=== PATIENT | female | born 1990 | race Caucasian/White ===

== ENCOUNTER → 2024-07-07 10:05 | Outpatient (CLI) | payer BC, SELFPAY ==
[2024-07-07 11:44] LABS: Add Manual Diff / Slide Review NO; Basophils Absolute Auto 0 /uL (0-100); Basophils Percent Auto 0.4 % (0-2); Eosinophils Absolute Auto 100 /uL (0-450); Eosinophils Percent Auto 0.6 % (2-4); Hematocrit 37.3 % (36-46); Hemoglobin 12.6 g/dL (12.0-16.0); Lymphocytes Absolute Auto 1600 /uL (1100-4500); Lymphocytes Percent Auto 15.9 % (25-40); Mean Corpuscular HGB Conc 33.8 % (30-36); Mean Corpuscular Hemoglobin 30.7 PG (26-34); Mean Corpuscular Volume 90.8 fL (80-100); Monocytes Absolute Auto 400 /uL (0-900); Monocytes Percent Auto 3.6 % (3-14); Neutrophils Absolute Auto 8000 /uL (1500-7000); Neutrophils Percent Auto 79.5 % (50-75); Platelet Count 308 X10^3/uL (150-400); Red Blood Cell Count 4.11 X10^6/uL (4.0-5.2); Red Cell Distribution Width 13.8 % (11.6-14.8)
[2024-07-07 11:59] LABS: Natera Collection Specimen Collected
[2024-07-07 13:15] LABS: Hepatitis B Surface Antigen NEGATIVE s/c (NEGATIVE); Rubella Antibody IgG 64.1 IU/mL (>15)
[2024-07-07 13:31] LABS: HIV 1 & 2 Ab/Ag 4th Gen Combo NEGATIVE (NEGATIVE); Hep C Virus Ab w/Reflex Quant NEGATIVE s/c (NEGATIVE)
[2024-07-08 04:14] LABS: RPR Screen Non Reactive (Non Reactive)
[2024-07-08 09:09] LABS: Varicella IgG Antibody Non Reactive (Non Reactive)
== END ==
PROVIDERS: Obstetrics & Gynecology; Referring Provider Student in an Organized Health Care Education/Training Program; Visit Provider Student in an Organized Health Care Education/Training Program
DX: O09.521 Supervision of elderly multigravida, first trimester (principal)
CPT/HCPCS: 36415; 80055; 86787; 86803; 86850; 86900; 86901; 87389

== ENCOUNTER → 2024-08-04 08:37 | Outpatient (CLI) | payer BC, SELFPAY ==
[2024-08-07 20:36] LABS: AFP Value 94.5 ng/mL (.); Gest Age on Col Date 15.6 weeks (.); Insulin Dep Diabetes No (.); OSBR Risk 1IN 188 (.); Results Report (.); Test Results *Screen Positive* (.)
== END ==
PROVIDERS: Obstetrics & Gynecology; Referring Provider Obstetrics & Gynecology; Visit Provider Obstetrics & Gynecology
DX: Z36.0 Encounter for antenatal screening for chromosomal anomalies (principal); Z34.02 Encounter for supervision of normal first pregnancy, second trimester
CPT/HCPCS: 36415; 82105

== ENCOUNTER → 2024-08-12 06:59 | Outpatient (CLI) | payer BC, SELFPAY ==
[2024-08-14 20:10] LABS: AFP Value 89.9 ng/mL (.); Gest Age on Col Date 16.7 weeks (.); Insulin Dep Diabetes No (.); OSBR Risk 1IN 472 (.); Results Report (.); Test Results *Screen Negative* (.)
== END ==
PROVIDERS: Referring Provider Obstetrics & Gynecology; Visit Provider Obstetrics & Gynecology
DX: Z34.92 Encounter for supervision of normal pregnancy, unspecified, second trimester (principal); R77.2 Abnormality of alphafetoprotein
CPT/HCPCS: 36415; 82105

== ENCOUNTER → 2024-10-17 08:28 | Outpatient (CLI) | payer BC, SELFPAY ==
[2024-10-17 10:36] LABS: Hematocrit 34.1 % (36-46); Hemoglobin 11.6 g/dL (12.0-16.0)
[2024-10-17 11:47] LABS: GTT (PREG) 1 Hour PP 50gm Dose 113 mg/dL (76-139)
== END ==
PROVIDERS: Referring Provider Obstetrics & Gynecology; Visit Provider Obstetrics & Gynecology
DX: Z34.02 Encounter for supervision of normal first pregnancy, second trimester (principal); Z3A.26 26 weeks gestation of pregnancy
CPT/HCPCS: 36415; 82950; 85014; 85018

== ENCOUNTER 2024-12-30 07:23 | Inpatient (IN) | payer BC, SELFPAY ==
--- NOTE | 2024-12-30 09:12 | PM.OBHP.IH.1 ---
OB HPI Date/Time Date of admission: 12/30/24 Date Patient Seen: 12/30/24 Time Patient Seen: 08:00 History of Present Condition Chief complaint: PPROM at 36w5d WARNER Calculator Estimated Delivery Date Method Current WG Current Estimate 01/22/25 LMP (Certain) 36w 5d Other Estimates 01/25/25 Ultrasound #1 36w 2d care: good care Dating criteria OB: LMP confirmed by 1st trimester US Ultrasounds: normal 1st trimester US and normal mid trimester US Obstetrical complications: none Medical complications OB: none Preadmission Labs Last OB Lab Results: Blood Type A Positive 12/30/24 08:15 Antibody Screen Negative 12/30/24 08:15 Hct 36.6 % (36-46) 12/30/24 08:15 Hgb 12.3 g/dL (12.0-16.0) 12/30/24 08:15 Hep Bs Antigen Negative s/c (NEGATIVE) 07/07/24 10:59 Hepatitis C Antibody Negative s/c (NEGATIVE) 07/07/24 10:59 Rubella Antibody 64.1 IU/mL (>15) 07/07/24 10:59 VZV IgG Antibody Non reactive (Non Reactive) 07/07/24 10:59 Glucose 1 Hr 50 gm 113 mg/dL (76-139) 10/17/24 10:54 Group B Strep (PCR) Pos for grp b strep H 12/30/24 08:00 -: Chlamydia screen: negative, Gonorrhea screen: negative and Urine: negative -: PAP smear: Normal Genetic Screens: Cell-free DNA: Normal and Alpha-fetoprotein: Normal External Labs -: Urine: negative Evaluation Evaluation Baseline heart rate: 140 Variability: Moderate (11-25) monitor accelerations: Present Monitor Decelerations: Absent Contraction Frequency (minutes): 8 Uterine Contraction Intensity: Moderate Category of Tracing: Reactive Status: Category l Dilation (cm): 1 Effacement (%): 30 Dilation: 1-2 cm Effacement: 0-30% station: -3 Position of cervix: posterior Consistency: soft Simon score: 3 Non-invasive Membranes Rupture Test: positive [facility] Medical History (Updated 08/04/24 @ 08:18 by Jerrell Wheatley MD) Labial cyst Surgical History (Updated 05/27/24 @ 13:35 by Tory Sorenson RN) [place] teeth removed Family History (Updated 05/27/24 @ 13:36 by Tory Sorenson RN) Mother Hypertension Grandfather Lung cancer Smoker Social History marital status: details: : Ernst Mike number of children: 0 household members: spouse lives independently: Yes caregiver/support person: No housing: house pets and animals: Yes (3 dogs, 1 cat, 8 chickens, 1 duck; aware of precautions ) education level: college (bachelors in communication ) 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 Discussed every day and pet precautions) special abril needs: No travel history: other (denies ) seatbelt use: always helmet use: Yes (scooters) water heater temp set < 120 deg: Yes working smoke detector in home: Yes fire extinguisher in home: Yes carbon monox detector in home: Yes firearms in home: Yes firearms unloaded and locked: Yes do you feel safe at home: Yes Smoking Status: Never smoker second hand exposure: No alcohol intake: former (socially before ) substance use type: marijuana (Occasional, not since ) during the past year weight has: remained stable well-balanced diet: daily or most days daily servings fruits/ve or more times/day caffeine: Yes (1 cup of coffee every day ) Type(s) of exercise: walking and additional (Gardening ) frequency: 5-6 times per week Meds Home Medications and Allergies Home Medications Medication Instructions Recorded Confirmed Type Magnesium Citrate 250mg PO 05/27/24 12/16/24 History vits no.126-ferrous fum tab PO 05/27/24 12/16/24 History 28 mg iron-folic acid 800 mcg tablet (Classic ) breast pump #1 ea 10/09/24 12/16/24 Rx Allergies Allergy/AdvReac Type Severity Reaction Status Date / Time No Known Drug Allergies Allergy Unverified 12/16/24 07:54 Review of Systems Review of Systems ROS: Yes All systems reviewed with the patient and are negative except as otherwise documented OB Exam Vital signs Blood Pressure: 112/71 Pulse Rate: 65 Respiratory Rate: 18 Temperature: 97.9 F HENMT Head: normal to inspection Cardio Rate: regular rate GI Inspection: normal to inspection Palpation: Yes soft Other: gravid, jose cephalic External Female Exam: Yes normal external appearance Objective Labs 12/30/24 08:15 Assessment and Plan Assessment and Plan Assessment and Plan narrative: 34yo G1 at 36w5d d=11wk US presents with PPROM at 0400, early latent late- labor PPROM, early latent late- labor +amnisure, GBS collected on arrival start ampicillin with +GBS culture/active labor pt amenable to IV pitocin in nondenominational contractions space, currently irregular but becoming stronger Cat 1 tracing, maternal VSS/afebrile peds aware Patient is consented for vaginal, vaginal operative and delivery as well as transfusion of blood products as medically indicated. admit for expectant management, anticipate vaginal delivery Time-Based Coding :: [TOTAL MINUTES] spent with patient and on the chart (including review of chart, obtaining history, exam, reviewing outside data, placing orders, documenting exam and treatment plan, and counseling patient) on [DATE].
[2024-12-30 09:16] LABS: Strep Grp B PCR POS for Grp B Strep
[2024-12-30 09:26] LABS: Add Manual Diff / Slide Review NO; Basophils Absolute Auto 100 /uL (0-100); Basophils Percent Auto 0.5 % (0-2); Eosinophils Absolute Auto 0 /uL (0-450); Eosinophils Percent Auto 0.4 % (2-4); Hematocrit 36.6 % (36-46); Hemoglobin 12.3 g/dL (12.0-16.0); Lymphocytes Absolute Auto 2100 /uL (1100-4500); Lymphocytes Percent Auto 17.9 % (25-40); Mean Corpuscular HGB Conc 33.6 % (30-36); Mean Corpuscular Hemoglobin 31.4 PG (26-34); Mean Corpuscular Volume 93.6 fL (80-100); Monocytes Absolute Auto 500 /uL (0-900); Monocytes Percent Auto 4.4 % (3-14); Neutrophils Absolute Auto 8900 /uL (1500-7000); Neutrophils Percent Auto 76.8 % (50-75); Platelet Count 227 X10^3/uL (150-400); Red Blood Cell Count 3.91 X10^6/uL (4.0-5.2); Red Cell Distribution Width 13.9 % (11.6-14.8); White Blood Cell Count 11.6 X10^3/uL (4.5-11.0)
[2024-12-30 09:36] VITALS: BP 115/71
[2024-12-30] MEDS: LACTATED RINGERS 1,000 ML 100 ML IV ×2 (11:55→23:10)
[2024-12-30] MEDS: AMPICILLIN 2,000 MG in SODIUM CHLORIDE 0.9% 100 ML 200 MG IV (11:56)
[2024-12-30] MEDS: OXYTOCIN PREMIX 30 UNIT/500 ML PLAST..BAG IV (13:31)
--- NOTE | 2024-12-30 15:15 | PM.AN.REGBLK ---
Regional Block Pre-procedure PMH/ROS narrative: active labor ASA Class: II Labs: Hct 36.6 % (36-46) 12/30/24 08:15 Plt Count 227 X10^3/uL (150-400) 12/30/24 08:15 Medications: Current Medications Generic Name Dose Route Start Last Admin Trade Name Freq PRN Reason Stop Dose Admin Carboprost Tromethamine 250 mcg 12/30/24 09:09 Carboprost 250 Mcg/Ml Ampul IM Q90M PRN Bleeding Diphenhydramine HCl 25 mg 12/30/24 15:12 Diphenhydramine 50 Mg/Ml Vial IV Q10M PRN Pruritis Lactated Ringer's 1,000 mls @ 100 mls/hr 12/30/24 09:15 12/30/24 11:55 Lactated Ringers IV 12/30/24 19:14 100 mls/hr CONT JEOVANNY Administration Oxytocin/Lactated Ringer's 30 unit in 500 mls @ 200 mls/hr 12/30/24 09:09 Oxytocin Premix IV CONT PRN Bleeding Protocol Tranexamic Acid 1,000 mg/ 100 mls @ 600 mls/hr 12/30/24 09:09 Sodium Chloride IV NOW PRN Bleeding Ampicillin Sodium 1,000 mg/ 100 mls @ 200 mls/hr 12/30/24 13:00 Sodium Chloride IV Q4H JEOVANNY Oxytocin/Lactated Ringer's 30 unit in 500 mls @ 2 mls/hr 12/30/24 09:15 12/30/24 13:31 Oxytocin Premix IV 2 milliunit/min TITRATE JEOVANNY 2 mls/hr Administration Protocol 2 MILLIUNIT/MIN FENT 2MCG/ML BUPIV 0.125% EPI 200 mcg in 100 mls @ 10 mls/hr 12/30/24 15:15 Fentanyl/Bupiv/Ns 2mcg/Ml - 0.125% EPIDURAL CONT JEOVANNY Lidocaine HCl 20 ml 12/30/24 09:09 Lidocaine 1% 20 Ml INJ INTRA-OP PRN Post Delivery Methylergonovine Maleate 0.2 mg 12/30/24 09:09 Methylergonovine 0.2 Mg Tablet PO Q6HR PRN Heavy Bleeding Methylergonovine Maleate 0.2 mg 12/30/24 09:09 Methylergonovine 0.2 Mg/Ml Vial IM NOW PRN Bleeding Mineral Oil 30 ml 12/30/24 09:09 Mineral Oil 30 Ml Udc TOP PRN PRN Version Misoprostol 800 mcg 12/30/24 09:09 Misoprostol 200 Mcg Tablet NM NOW PRN Bleeding Misoprostol 400 mcg 12/30/24 09:09 Misoprostol 200 Mcg Tablet SL NOW PRN Bleeding Nalbuphine HCl 2.5 mg 12/30/24 15:12 Nalbuphine 20 Mg/Ml Ampul IV Q10M PRN Pruritis Naloxone HCl 0.2 mg 12/30/24 09:09 Naloxone 0.4 Mg/Ml Vial IV Q2MIN PRN Opiate Reversal Oxytocin 10 unit 12/30/24 09:09 Oxytocin 10 Unit/Ml Vial IM NOW PRN Bleeding Allergies: Allergies Allergy/AdvReac Type Severity Reaction Status Date / Time No Known Drug Allergies Allergy Unverified 12/16/24 07:54 --: pt in sitting position. history and physical obtain. r/b/a discussed. pt consent to proceed. drape and prep with sterile technique. VSS. l3 l4 is id'd. slight scoliosis noted, lumbar spine slightly deviated to the right. localized with lido 1 % 3 cc. tuohy introuced. SUMAYA at 6 cm. 27 g pencil point needle through. CSF positive heme negative no paresthesia. lido 1% 0.5 mL given. threaded catheter to 12 cm. pt still having pain through contractions, mostly pelvic and lower back. decision made to remove catheter and replace. 1557 catheter out. sterile prep again at 1558. repeated steps above, one interspace below. localized skin at 1600 with lido 1% cc. instead of CSE performed DPE to confirm midline placement. test dose at 1607 of lido 1.5% with, 3 cc. threaded cathether at 1605. waited at bedside for a few contractions. pt reports 0/10 pain with replacement epidural. pt c/o increasing pelvic pressure with each contraction. gave fentanyl 50 mcg with bupivacaine 0.25% 4 cc. increased rate to 11. Procedure Insertion date: 12/30/24 Insertion time: 14:57 Prep/Local: betadine x3 (chloraprep) and 1% lidocaine Interspace: l3 l4 Patient position: sitting Needle: 18 gauge Bertha Loss of resistance with: saline SUMAYA at (cm): 6 Catheter placed at SKIN (cm): 12 Sensory level: t8 Initial Medications TEST DOSE time: 14:58 TEST DOSE: 1.5% lidocaine with epinephrine 1:200k (mL): 3 BOLUS DOSE time: 15:04 BOLUS DOSE (mL): 3 BOLUS DOSE med: other (infusate) Infusion INFUSION: 0.125% bupivacaine and with fentanyl 2 mcg/mL Initial rate (mL/hr): 10 Post-procedure Anesthesia date START: 12/30/24 Anesthesia time START: 14:47 Anesthesia date END: 12/31/24 Anesthesia time END: 00:50 Post-procedure Anesthesia Assessment: Yes CV function: HR/BP stable, Yes Resp function: RR/sat/airway adequate, Yes Post-op hydration adequate, Yes Pain control adequate, Yes Nausea & vomiting absent, Yes Temperature > 36 C and Yes Mental status appropriate
[2024-12-30] MEDS: ePHEDrine 50 MG/ML VIAL 10 MG IV (17:23)
[2024-12-30] MEDS: AMPICILLIN 1,000 MG in SODIUM CHLORIDE 0.9% 100 ML 200 MG IV ×2 (17:58→22:03)
[2024-12-30 18:53] VITALS: BP 112/71; PULSE 65; RESP 18; TEMP 36.6
--- NOTE | 2024-12-30 18:53 | PM.OBPNLAB ---
Date/Time Date Patient Seen: 12/30/24 Time Patient Seen: 18:54 Pain Control Pain control: tolerating well and epidural Comments: pitocin started at 1300 Pelvic Exam Dilation (cm): 4 Effacement (%): 70 station: -3 Amniotic membrane status: Leaking Contractions Contractions on admission: regular Monitor mode: External Pitocin rate (mU/min): 9 Contraction frequency (min): 3 Contraction pattern: Regular Contraction intensity: Moderate Status status: Category l Heart Rate Baseline: 150 Monitor Accelerations: Present Monitor Decelerations: Episodic Monitor Variability: Moderate (intermittent periods of decreased variability noted, c/w sleep cycle) Assessment and Plan Assessment: other (latent late pre-term labor ) Plan: continuous present management Comments: continue pitocin augmentation minimize SVE in setting of PPROM anticipate interval SVE 4-6h, sooner PRN urge to push/acute clinical change anticipate vaginal delivery
[2024-12-30] MEDS: FENT 2MCG/ML BUPIV 0.125% EPI 200 MCG/100 ML PLAST..BAG 10 MCG EPIDURAL (20:52)
--- NOTE | 2024-12-31 01:00 | P.PCNOB_ITS ---
Events: Labor < 37 wks and Premature Rupture Membrane Labor & Delivery Delivery date: 12/31/24 Delivery Time: 00:40 Delivery augmentation: pitocin Delivery monitor: external FHT Route of delivery: L&D Laceration Description: None Estimated blood loss (mL): 200 Anesthesia Type: Epidural Narrative: C/C/+1 station at 0015. Patient in dorsal lithotomy position, continuous external monitoring throughout second stage with noted change in baseline from 150bpm to 170bpm, moderate variability with recurrent late and variable decelerations, adequate intervening recovery. 500cc NS bolus given, maternal VSS/afebrile. Over successive maternal expulsive efforts slow steady descent of station to +4, followed by delivery of head in straight OA compound presentation with RUE flexed with nuchal hand, restitution to maternal right. Anterior shoulder delivered with gentle downward traction followed by delivery of posterior shoulder and body. was placed on maternal abdomen and stimulated, weak cry with rapid improvement thereafter, APG AR 7/8 Tc 98.9F. Delayed cord clamping x2min, cord clamped x2 and cut by FOB with 3VC noted. Placenta delivered with gentle downward traction 9min following delivery, inspected and noted to be intact with area of calcified c[place]on and will be sent for pathology in setting of late PROM. Fundus palpated and firm well below umbilicus with scant bleeding. Perineal exam revealed no lacera tions. All counts correct x2, pt tolerated well without complication. Baby 1: Infant gender: Female Presentation: vertex (compound RUE nuchal hand ) Position: Right Occiput Anterior Placenta delivery description: Spontaneous Cord Vessel Description: 3 Vessels score (1 min): 7 score (5 min): 8 Plan for aftercare: Routine care
--- NOTE | 2024-12-31 05:08 | PATH_ITS ---
[facility] Accession Number: [id number] No. of containers..01 Tissue . 01 Material submitted: . placenta - PLACENTA . 01 Diagnosis: PLACENTA, DELIVERY: Placenta parenchyma: Weight 432 grams. Placental infarct occupies approximately 25% of the maternal surface at gross examination. Chorionic villous maturation is variable. No definite villitis identified. Mild to moderate inter- and intravillous fibrin is present. . Umbilical cord: 32.5 cm in length. Eccentrically inserated. Three vessels present. No funisitis identified. . Membranes: Inserted marginslly. Ruptured 3.4 cm from the nearest disc margin. No chorioamnionitis identified. Meconium staining present. [facility] 01/04/2025 1735 Local . 01 Electronically signed: . Ana Huang MD, Pathologist NPI- [id number] . 01 Gross description: . Received in formalin with two identifiers and placenta, is an intact discoid del rio placenta, 432 grams, 17.4 x 16.9 x 2.1 cm, with no accessory lobes identified. . The membranes are translucent with small vila areas of thickening occupying less than 10% of the membrane surface. They insert at the margin and have a point of rupture 3.4 cm from the nearest disc edge. . The cord (32.5 cm in length by 1.3 cm in diameter) with a leftward coil and an index of approximately 2 twists per 5 cm, inserts eccentrically 3.5 cm from the disc edge. Sectioning reveals unremarkable trivascular architecture with no knots or lesions identified. . The surface is blue-smith with normal arborizing vasculature and a pale vila area occupying approximately 25% of the surface with no additional lesions identified. . The maternal surface is apparently complete with a pale vila area of discoloration occupying approximately 25% of the maternal surface and correlates to the aforementioned surface discoloration. The remaining maternal surface is unremarkable with no adherent hemorrhage identified. Sectioning reveals full thickness vila discoloration associated with the aforementioned and maternal lesions. No additional lesions are identified, and the remaining cut surface is red, spongy, and unremarkable. Cake Winder sections are submitted as follows: . A1: Membrane roll and placental end of cord. A2: Membrane roll and end of cord. A3-A4: Area of full thickness discoloration. A5-A7: Central full thickness unremarkable sections. ([id number]) /MRV 01/02/20252054 Local . 01 Pathologist provided ICD-10: O43.90 . 01 CPT . 167817 Specimen Comment: A courtesy copy of this report has been sent to [facility] Pathology Performed at: [address] [facility] [address] [address], [place], [place] [id number] MD Greg Villatoro MD Phone: [phone]
[2024-12-31] MEDS: LANOLIN OINT 7 GM 1 APPLIC TOP ×2 (06:23→09:37)
[2024-12-31] MEDS: WITCH HAZEL/GLYCERIN PADS 1 EACH TOP (09:37)
[2024-12-31] MEDS: DERMOPLAST SPRAY 20% 60 ML 1 SPRAY TOP (09:37)
--- NOTE | 2025-01-01 07:59 | P.DS_ITS ---
Discharge Providers Provider Date of admission: 12/30/24 07:23 Discharge Date: 01/01/25 Primary care physician: Doctor Rigo MD Consults: 12/30/24 09:09 Consult to Anesthesiology Urgent Comment: Consulting Provider: Anesthesiologist Reason for consultation: Epidural 01/01/25 00:57 Consult to Surveillance Camera Technician Routine Comment: Discharge provider: Tracee Barry MD Summary Hospital Course Date Patient Seen: 01/01/25 Time Patient Seen: 08:00 Diagnoses: s/p late at 36w6d following PPROM Hospital Course: 34yo G1 at 36w5d presented to facility following PPROM of clear fluid at 0430. Antental course notable only for GBS unknown at time of presentation. Reactive NST on arrival, early latent labor with SVE 1cm. GBS collected on admission resulted + and patient was started on ampicillin and adequately treated throughout labor course. Patient received pitocin augmentation of early latent labor. She received epidural for neuraxial analgesia. Pt progressed to complete cervical dilation <24h from rupture, send stage complicated by persistent category II tracing (recurrent deep variable decelerations) however adequate intervening variability. Patient pushed for approximately 30min with delivery of LBFI over intact perineum, 7/8. Placenta was noted to have area of atypical calcification consistent with partial infarct; sent to pathology. Pt had uncomplicated course and was discharged to home on PPD1 meeting all discharge milestones. Peripartum Data Infant Delivery Method: Natural Vaginal Laceration Description: None complications: none 1: Gender: Female Status at Discharge Cognitive/behavioral status at discharge: oriented Functional status at discharge: independent ambulation Overall status at discharge: patient is back to baseline Time Spent with Patient Time attestation: Total time spent providing and/or coordinating discharge services: Time spent: Less than 30 minutes Objective Labs 12/30/24 08:15 Exam Vital Signs (past 8 hours): maternal VSS/afebrile, reviewed in OBIX Const General: cooperative, healthy appearing and comfortable Nutritional Appearance: average body habitus Orientation: alert, awake and oriented x3 Limitations: mental status not altered Resp Effort & Inspection: normal respiratory effort and able to speak in complete sentences Cardio Pulses: normal peripheral pulses GI Inspection: normal to inspection Palpation: soft Other: fundus firm << umb, non-tender Other: deferred Skin General: no rashes or lesions noted Neuro General: patient alert, patient awake and patient oriented x3 Extrem General: normal to inspection Psych Mental Status: mental status grossly normal Judgment: judgment good Discharge Plan Discharge Plan Patient Disposition: Home Discharge orders & Medications Prescriptions: New acetaminophen 325 mg Tablet 650 mg PO Q6HR PRN (Reason: Pain, Mild (1-3)) Qty: 30 0RF ibuprofen 600 mg Tablet 600 mg PO Q6HR PRN (Reason: Pain, Mild (1-3)) Qty: 30 0RF Purelan Cream 1 applic topical PRN PRN (Reason: Tenderness) Qty: 7 3RF [employer] Antonella 12.5-50 % Pads, Medicated 1 pad topical Q30M PRN (Reason: Itching) Qty: 40 2RF Continued Classic 28 mg iron- 800 mcg tablet PO Discontinued Magnesium Citrate 250mg PO No Action (DME) breast pump Device See Rx Instructions .Route Qty: 1 0RF Rx Instructions: Electric breast pump Follow up/Referrals: Tracee Barry MD [Physician] - (Your doctor will call you on January 15 around 4pm to check in with you. Your 6wk appointment is scheduled on February 12 @10:00am, check in 15 minutes early. Your support appointment is scheduled on Sunday January 05, 2025 at 11:00 am [address] [place] [id number].) Diet/Activity/Treatments Diet: Diet as Tolerated and Regular Skin/Wound/Dressing Care Report to your healthcare provider any signs of infection, such as:: chills, fever, increased pain and unusual drainage Visit Report/Discharge Packet Instructions: DI for Hemorrhage, DI for Depression Stand Alone Forms: Discharge: Care, Patient Portal/API, Stroke Signs & Symptoms Discharge Data Primary Care Provider: Miscellaneous,Doctor
[2025-01-01 13:20] VITALS: BP 112/71; PULSE 65; RESP 18; TEMP 36.6
== END 2025-01-01 13:20 | disposition home or self-care (01) | DRG 807 ==
PROVIDERS: Admitting Provider Obstetrics & Gynecology; Referring Provider Obstetrics & Gynecology; Visit Provider Obstetrics & Gynecology
DX: O42.013 Preterm premature rupture of membranes, onset of labor within 24 hours of rupture, third trimester (principal); Z37.0 Single live birth; O99.824 Streptococcus B carrier state complicating childbirth; Z3A.36 36 weeks gestation of pregnancy; O76 Abnormality in fetal heart rate and rhythm complicating labor and delivery
CPT/HCPCS: 36415; 59025; 59050; 59400; 76815; 84112; 85025; 86850; 86900; 86901; 87653; G0379; J0290; J2590; J3010